=== PATIENT | female | born 1990 | race Caucasian/White ===

== ENCOUNTER 2022-07-28 16:58 | Outpatient (CLI) | payer BC, SELFPAY ==
[2022-07-28] VITALS (60 sets, daily range): BP systolic 124–153; BP diastolic 63–83; PULSE 66–138; O2SAT 83–99
--- NOTE | ~2022-07-28 | US_ITS ---
EXAMINATION: US OB BPP wo non-stress DATE: 07/29/2022 08:47 CDT INDICATION: Hypertension. TECHNIQUE: Real-time transabdominal obstetric ultrasound. FINDINGS: Comparison to ultrasound dated 07/19/2022 There is a single living fetus in vertex presentation. No evidence for placenta previa. cardiac activity and movement is noted with a heart rate of 139 beats per minute. Biophysical profile: breathin of 2 movement: 2 of 2 tone: 2 of 2 Amniotic flud pocket: 2 of 2 Total score: 8 of 8 IMPRESSION: 1. Single living intrauterine in vertex presentation. 2: Total biophysical profile score of 8/8. Reviewed, dictated and finalized at location L.
[2022-07-28 19:20] LABS: Basophils Percent Auto 0.3 % (0.2-1.2); Eosinophils Percent Auto 0.5 % (0-4.4); Hematocrit 34.7 % (37.0-47.0); Hemoglobin 11.5 g/dL (12.0-15.0); Immature Granulocyte Absolute 0.04 K/mm3 (0.00-0.031); Immature Granulocyte Percent A 0.5 % (0-0.5); Lymphocytes Absolute Auto 1.41 K/mm3 (0.9-3.2); Lymphocytes Percent Auto 19.1 % (18.3-44.2); Mean Corpuscular HGB Conc 33.1 g/dl (32-36); Mean Corpuscular Hemoglobin 30.3 pg (26-34); Mean Corpuscular Volume 91.3 fl (80-100); Mean Platelet Volume 11.2 fl (7.4-10.4); Monocytes Absolute Auto 0.3 K/mm3 (0.1-0.6); Monocytes Percent Auto 4.5 % (2.6-8.5); Neutrophils Absolute Auto 5.5 K/mm3 (1.3-6.7); Neutrophils Percent Auto 75.1 % (45.5-73.1); Platelet Count Result 200 k/mm3 (150-375); Red Cell Distribution Width 13.9 % (11.5-14.5); White Blood Count 7.4 K/mm3 (4.5-10.0)
[2022-07-28 19:31] LABS: Alanine Aminotransferase 32 U/L (6-35); Albumin Level 3.7 g/dL (3.5-5.1); Alkaline Phosphatase 170 U/L (38-126); Anion Gap 10 mmol/L (8-16); Aspartate Amino Transferase 26 U/L (14-36); Bilirubin,Total 0.4 mg/dL (0.2-1.3); Blood Urea Nitrogen 7 mg/dL (7-17); Calcium 8.6 mg/dL (8.4-10.2); Carbon Dioxide 20 mmol/L (22-30); Chloride 106 mmol/L (98-107); Estimated Glomerular Filt Rate > 60; Glucose 112 mg/dL (65-110); Potassium 3.7 mmol/L (3.4-5.0); Sodium 136 mmol/L (137-145); Uric Acid 3.6 mg/dL (2.5-7.5)
--- NOTE | 2022-07-28 20:00 | PC.NURSE ---
Pt wearing small blood pressure cuff. Per BP cuff instructions, white line not within the arrows. Also BP cuff instructions stat 27-36 cm. Pt arm measured and it is 38 cm. BP cuff change switched to larger size.
[2022-07-28 20:44] LABS: Creatinine Urine 117.8 mg/dL; Total Protein Urine Random 9 mg/dL; Ur Ttl Prot Creatinine Ratio 0.08 mg/mg (0-0.20)
--- NOTE | 2022-07-28 21:40 | PC.NURSE ---
Made Dr. Desai aware of pt labs currently and that UA is not back. contractions, FHR, BPs. Orders to d/c patient with follow up of NST Tuesday.
--- NOTE | 2022-07-28 21:50 | PC.NURSE ---
BP in OBIX. [employer]ite[employer] down and did not flow in.
== END 2022-07-28 21:50 ==
LOC: ANHOBOP 17:01 → ANHOBPP 17:01
PROVIDERS: Visit Provider Obstetrics & Gynecology
DX: O13.9 Gestational [pregnancy-induced] hypertension without significant proteinuria, unspecified trimester (principal); Z3A.00 Weeks of gestation of pregnancy not specified
CPT/HCPCS: 36415; 59025; 76819; 80053; 82570; 84156; 84550; 85025; 87086; 87088; 99199

== ENCOUNTER 2022-08-02 14:20 | Outpatient (CLI) | payer BC, SELFPAY ==
[2022-08-02 15:05] VITALS: BP 156/83; PULSE 91
[2022-08-02 15:16] VITALS: BP 134/78; PULSE 93
[2022-08-02 15:20] LABS: Basophils Percent Auto 0.3 % (0.2-1.2); Eosinophils Percent Auto 0.5 % (0-4.4); Hematocrit 37.2 % (37.0-47.0); Hemoglobin 12.2 g/dL (12.0-15.0); Immature Granulocyte Absolute 0.03 K/mm3 (0.00-0.031); Immature Granulocyte Percent A 0.4 % (0-0.5); Lymphocytes Absolute Auto 1.41 K/mm3 (0.9-3.2); Lymphocytes Percent Auto 18.9 % (18.3-44.2); Mean Corpuscular HGB Conc 32.8 g/dl (32-36); Mean Corpuscular Hemoglobin 30.3 pg (26-34); Mean Corpuscular Volume 92.5 fl (80-100); Mean Platelet Volume 10.9 fl (7.4-10.4); Monocytes Absolute Auto 0.3 K/mm3 (0.1-0.6); Neutrophils Absolute Auto 5.7 K/mm3 (1.3-6.7); Neutrophils Percent Auto 75.9 % (45.5-73.1); Platelet Count Result 212 k/mm3 (150-375); Red Blood Count 4.02 M/mm3 (4.2-5.4); Red Cell Distribution Width 14.1 % (11.5-14.5); White Blood Count 7.5 K/mm3 (4.5-10.0)
[2022-08-02 15:27] LABS: Appearance Urine Cloudy (Clear); Bacteria Urine 1+ /hpf; Bilirubin Urine Negative (Negative); Blood Urine Negative (Negative); Color Urine Yellow (Yellow); Glucose Urine UA Negative (Negative); Ketones Urine Negative (Negative); Leukocyte Esterase Ur 2+ LEU/UL (NEGATIVE); Nitrate Urine Negative (Negative); Non Pathogenic Casts 0-2; Protein Urine Negative (Negative); RBC Urine 0-2 /hpf (0-2); Specific Grav Ur 1.016 (1.001-1.035); Squamous Epithelial Cell Urine Many /hpf (Few); WBC Urine 21-50 /hpf (0-3)
[2022-08-02 15:31] VITALS: BP 134/70; PULSE 87
[2022-08-02 15:31] LABS: Add Urine Microscopic? YES
[2022-08-02 15:33] LABS: Alanine Aminotransferase 34 U/L (6-35); Alkaline Phosphatase 166 U/L (38-126); Anion Gap 6 mmol/L (8-16); Aspartate Amino Transferase 35 U/L (14-36); Bilirubin,Total 0.5 mg/dL (0.2-1.3); Blood Urea Nitrogen 8 mg/dL (7-17); Calcium 9.1 mg/dL (8.4-10.2); Carbon Dioxide 23 mmol/L (22-30); Chloride 107 mmol/L (98-107); Estimated Glomerular Filt Rate > 60; Glucose 108 mg/dL (65-110); Potassium 3.9 mmol/L (3.4-5.0); Sodium 136 mmol/L (137-145); Uric Acid 4.1 mg/dL (2.5-7.5)
[2022-08-02 15:38] LABS: Creatinine Urine 90.6 mg/dL; Total Protein Urine Random 14 mg/dL; Ur Ttl Prot Creatinine Ratio 0.15 mg/mg (0-0.20)
[2022-08-02 15:46] VITALS: BP 134/78; BP 138/79; PULSE 88; PULSE 95
== END 2022-08-02 16:03 | disposition home or self-care (01) ==
LOC: ANHOBOP 14:37 → ANHOBPP 14:38
PROVIDERS: Visit Provider Student in an Organized Health Care Education/Training Program
DX: O13.9 Gestational [pregnancy-induced] hypertension without significant proteinuria, unspecified trimester (principal); Z3A.00 Weeks of gestation of pregnancy not specified
CPT/HCPCS: 36415; 59025; 80053; 81001; 82570; 84156; 84550; 85025; 87086; 87088; 99199

== ENCOUNTER 2022-08-12 16:52 | Outpatient (RCR) | payer BC, SELFPAY ==
[2022-07-31 09:01] VITALS: BP 147/81; PULSE 79
[2022-08-05 18:04] VITALS: BP 140/79; PULSE 80
--- NOTE | 2022-08-05 18:22 | PC.NURSE ---
BPP 09/21. Patient discharged home.
--- NOTE | 2022-08-09 19:12 | PC.NURSE ---
Addendum entered by Colette Suarez RN 08/09/22 19:48: was also made aware of pt's BP's. Original Note: Called Dr. Desai about pt's NST. Orders for BPP amd HARMAN and to d/c patient after if all is okay.
--- NOTE | 2022-08-09 19:24 | PC.NURSE ---
Pt reports she can feel mild contractions very occasionaly, like one per hour some days. Pt not feeling the current contractions as much as she is having them.
--- NOTE | 2022-08-09 20:16 | PC.NURSE ---
Waiting for ultra sound report. Called production technologist, she reports BPP was 8/8 and HARMAN was 10.
--- NOTE | ~2022-08-12 | US_ITS ---
EXAMINATION: US OB BPP wo non-stress DATE: 08/12/2022 18:50 INDICATION: Gestational hypertension. TECHNIQUE: Real-time ultrasound of the pelvis was performed. COMPARISON: None. FINDINGS: There is a single living fetus in vertex presentation, longitudinal lie. The placenta is posterior. heart rate is 142 beats per minute (bpm). The amniotic fluid index is 8.2 cm, which is normal ( 5th to 95th percentile is 7.3 to 23.9 cm). Biophysical profile performed by the technologist: breathing (30 sec sustained breathing in 30 minutes): 2 out of 2 movement (3 gross body movements in 30 minutes: 2 out of 2 tone (one episode of sauxopk-mrcachjxa-jnwxpha limb movement): 2 out of 2 Amniotic fluid pocket (2 cm): 2 out of 2 Total score: 8 out of 8 IMPRESSION: 1. Single living fetus in vertex presentation. 2. Normal HARMAN of 8.2 cm. Reviewed, dictated and finalized at location K.
--- NOTE | ~2022-08-12 | US_ITS ---
EXAMINATION: US OB BPP wo non-stress DATE: 08/05/2022 18:11 INDICATION: Gestational hypertension TECHNIQUE: Real-time ultrasound of the pelvis was performed. COMPARISON: 07/28/2022. FINDINGS: There is a single living fetus in vertex presentation, longitudinal lie. Cervix not well seen, obscur ed by the head. The placenta is posterior. heart rate is 150 beats per minute (bpm). The amniotic fluid index is 6.9 cm, which is low (5th to 95th percentile is 7.5 to 24.4 cm). Biophysical profile performed by the technologist: breathing (30 sec sustained breathing in 30 minutes): 2 out of 2 movement (3 gross body movements in 30 minutes: 2 out of 2 tone (one episode of vuhpylb-osydsprle-nnbsbzh limb movement): 2 out of 2 Amniotic fluid pocket (2 cm): 2 out of 2 Total score: 8 out of 8 IMPRESSION: 1. Single living fetus in vertex presentation. 2. Oligohydramnios, HARMAN of 6.9. 3. Biophysical profile 8 out of 8. Reviewed, dictated and finalized at location K.
--- NOTE | ~2022-08-12 | US_ITS ---
EXAMINATION: US OB limited w BPP DATE: 08/09/2022 19:46 INDICATION: Evaluate heart rate, gestational hypertension. TECHNIQUE: Real-time ultrasound of the pelvis was performed. COMPARISON: None. FINDINGS: There is a single living fetus in vertex presentation, longitudinal lie. Cervix not well seen. The pl acenta is posterior. heart rate is 127 beats per minute (bpm). The amniotic fluid index is 10.7 cm, which is normal (5th to 95th percentile is 7.3 to 23.9 cm). Biophysical profile performed by the technologist: breathing (30 sec sustained breathing in 30 minutes): 2 out of 2 movement (3 gross body movements in 30 minutes: 2 out of 2 tone (one episode of gkhqrje-rtcsjxobq-jfkslwk limb movement): 2 out of 2 Amniotic fluid pocket (2 cm): 2 out of 2 Total score: 8 out of 8 IMPRESSION: 1. Single living fetus in vertex presentation. 2. Normal HARMAN of 10.7 cm. 3. Biophysical profile 8 out of 8. The liver, 08/05/2022 Reviewed, dictated and finalized at location K.
[2022-08-12 18:16] VITALS: BP 144/85; PULSE 69
== END 2022-09-27 12:50 | disposition home or self-care (01) ==
LOC: ANHOBOP 16:52
PROVIDERS: Visit Provider Student in an Organized Health Care Education/Training Program
DX: O16.3 Unspecified maternal hypertension, third trimester (principal); Z3A.37 37 weeks gestation of pregnancy
CPT/HCPCS: 59025; 76815; 76819

== ENCOUNTER 2022-08-14 08:03 | Outpatient (CLI) | payer BC, SELFPAY ==
[2022-08-14 08:30] LABS: Hematocrit 36.1 % (37.0-47.0); Mean Corpuscular HGB Conc 33.2 g/dl (32-36); Mean Corpuscular Hemoglobin 30.5 pg (26-34); Mean Corpuscular Volume 91.6 fl (80-100); Mean Platelet Volume 11.8 fl (7.4-10.4); Platelet Count Result 193 k/mm3 (150-375); Red Blood Count 3.94 M/mm3 (4.2-5.4); Red Cell Distribution Width 13.6 % (11.5-14.5); White Blood Count 6.6 K/mm3 (4.5-10.0)
[2022-08-15 10:17] LABS: Rapid Plasma Reagin Non-Reactive (NonReactive)
== END 2022-08-14 08:04 | disposition home or self-care (01) ==
LOC: ANHLAB 08:05
PROVIDERS: Visit Provider Student in an Organized Health Care Education/Training Program
DX: Z34.93 Encounter for supervision of normal pregnancy, unspecified, third trimester (principal); Z3A.00 Weeks of gestation of pregnancy not specified
CPT/HCPCS: 36415; 85027; 86592; 86850; 86900; 86901

== ENCOUNTER 2022-08-16 10:06 | Inpatient (IN) | payer BC, SELFPAY ==
[2022-08-16] VITALS (52 sets, daily range): BP systolic 113–170; BP diastolic 55–99; PULSE 56–277; RESP 14–18; TEMP 36–36.6; O2SAT 95–100; BMI 45.3
--- NOTE | 2022-08-16 10:06 | LDADM ---
This patient, Della Richards, was admitted to Labor/Delivery/Recovery 120 on 08/16/22 at 10:06. Plans for labor, pain management and were discussed with patient. Patient/family oriented to hospital policies and general routines including ID bracelet, bed and alarms, visiting hours, pain management, procedures, bathroom and other care routines, personal items, smoking policy, room service/diet and guest tray routines, infant security routines, and visiting hours. Patient/Family are encouraged to report perceived risks to care and to ask questions if they do not understand what they are told or what they should do. See OBIX for further documentation.
--- NOTE | 2022-08-16 10:06 | PM.IMHP ---
H&P: HPI History of Present Illness Date/Time: 08/16/22 10:06 Chief Complaint: Intrauterine at term prior section Gestational hypertension Desires permanent sterilization Narrative: 32-year-old who presents at 39 weeks for repeat And tubal ligation. Patient's is complicated by gestational hypertension and history of prior . Patient elects for permanent sterilization. Review of Systems Cardiovascular: Cardiovascular: Denies chest pain, Denies leg edema, Denies palpitations, Denies dyspnea and Denies dyspnea on exertion Respiratory: Respiratory: Denies cough, Denies dyspnea and Denies dyspnea on exertion Gastrointestinal: Gastrointestinal: Denies abdominal pain, Denies constipation, Denies diarrhea, Denies nausea and Denies vomiting Genitourinary: Genitourinary: Denies hematuria, Denies urinary frequency, Denies dysuria, Denies pelvic pain, Denies urinary incontinence and Denies vaginal discharge Neurologic: Reports system reviewed and no additional complaints, except as documented Psychiatric: Psychiatric: Reports no additional psychiatric complaints Endocrine: Endocrine: Denies palpitations PMFSH Past Medical History Medical History Suppression of menstruation Surgical History Surgical History Delivery by section (01/07/19) Family History Family History Grandparent CHF (congestive heart failure) paternal grandfather Hypertension paternal grandparents Other Breast cancer paternal aunt Carcinoma of colon paternal Aunt Different sisiter Father Hypertension Social History Social History Smoking status: Never smoker Alcohol intake: current Drinks per week: 1 Alcohol use details: social Substance use: current Substance use type: does not use Living arrangements: other Additional living arrangements comments: Occupation/Education: occupation 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 [employer] Gender identity (if verbalized by the patient): Female Sexual Orientation (if Verbalized by the Patient): Straight or Heterosexual Spiritual care concerns: No Meds Home Medications and Allergies Home Medications Medication Instructions Recorded Confirmed Type aspirin 81 mg tablet,delayed 81 mg PO DAILY 03/29/22 07/31/22 History release (Adult Low Dose Aspirin) omeprazole 20 mg capsule,delayed 20 mg PO DAILY #30 caps 06/07/22 07/31/22 Rx release ferrous sulfate 325 mg (65 mg 325 mg PO DAILY 06/21/22 07/31/22 History iron) tablet (FeroSul) vit no.95-ferrous 1 tablet PO DAILY 07/31/22 07/31/22 History fumarate 28 mg-folic acid 800 mcg tablet () Allergies Allergy/AdvReac Type Severity Reaction Status Date / Time No Known Allergies Allergy Verified 08/09/22 17:02 Exam Const: General: no acute distress Eyes: EOM: EOMs intact bilaterally Neck: Neck: supple Thyroid: thyroid normal Chest: Breast/axilla inspection: normal inspection of the breasts Breast/axilla palpation: normal palpation of the breasts, normal palpation of the axillae and no axillary lymphadenopathy Resp: Effort & Inspection: normal respiratory effort Auscultation: clear to auscultation bilaterally Cardio: Rate: regular rate Rhythm: regular rhythm GI: Inspection: non-distended and other (Gravid) GI Palp: Yes Soft to palpation, No Tenderness to palpation present (GI) and No Guarding due to palpation present (GI) Auscultation: normal bowel sounds : Speculum Exam - Vagina: No vaginal bleeding OB/external & speculum: external exam normal; No vaginal bleeding Skin: General skin exam: normal color and no rashes or lesi
[2022-08-16] MEDS: LACTATED RINGERS 1,000 ML 125 ML IV CONT ×2 (10:39→11:36)
[2022-08-16 10:57] LABS: Alanine Aminotransferase 35 U/L (6-35); Albumin Level 3.8 g/dL (3.5-5.1); Alkaline Phosphatase 206 U/L (38-126); Anion Gap 10 mmol/L (8-16); Aspartate Amino Transferase 28 U/L (14-36); Bilirubin,Total 0.5 mg/dL (0.2-1.3); Blood Urea Nitrogen 9 mg/dL (7-17); Calcium 9.4 mg/dL (8.4-10.2); Carbon Dioxide 19 mmol/L (22-30); Chloride 107 mmol/L (98-107); Estimated CRCL calculation 154 ml/min; Estimated Glomerular Filt Rate > 60; Glucose 91 mg/dL (65-110); Potassium 3.9 mmol/L (3.4-5.0); Sodium 136 mmol/L (137-145)
--- NOTE | 2022-08-16 10:58 | WPDANESEPPF ---
Anes - Initial Pre Proc Eval Procedure: Operation Date: 08/16/22 12:00 Proposed Procedures p Repeat Section with Tubal Ligation - Winston Francis MD Date/Time: 08/16/22 10:58 Surgeon: Winston Francis MD Pre Op Diagnosis: Repeat C/S Patient Data Age: 32 Gender: F Height: 1.55 m Weight: 109 kg Last Vital Signs Pulse 82 08/16/22 10:46 BP 119/61 08/16/22 10:46 Allergies Allergy/AdvReac Type Severity Reaction Status Date / Time No Known Allergies Allergy Verified 08/09/22 17:02 Home Medications Medication Instructions Recorded Confirmed Type aspirin 81 mg tablet,delayed 81 mg PO DAILY 03/29/22 07/31/22 History release (Adult Low Dose Aspirin) omeprazole 20 mg capsule,delayed 20 mg PO DAILY #30 caps 06/07/22 07/31/22 Rx release ferrous sulfate 325 mg (65 mg 325 mg PO DAILY 06/21/22 07/31/22 History iron) tablet (FeroSul) vit no.95-ferrous 1 tablet PO DAILY 07/31/22 08/16/22 History fumarate 28 mg-folic acid 800 mcg tablet () ibuprofen 600 mg tablet 600 mg PO Q6H PRN pain #30 tabs 08/18/22 Rx oxycodone-acetaminophen 5 mg-325 1 tablet PO Q6H PRN pain #28 tabs 08/18/22 Rx mg tablet labetalol 200 mg tablet 200 mg PO BID #60 tabs 08/24/22 08/24/22 Rx cephalexin 500 mg capsule 500 mg PO Q12H 5 days #10 caps 09/03/22 Rx Laboratory Tests 08/16/22 10:30 Sodium 136 L mmol/L (137-145) Potassium 3.9 mmol/L (3.4-5.0) Chloride 107 mmol/L (98-107) Carbon Dioxide 19 L mmol/L (22-30) Anion Gap 10 mmol/L (8-16) BUN 9 mg/dL (7-17) Creatinine 0.50 L mg/dL (0.7-1.0) Estim Creat Clear Calc 154 ml/min Estimated GFR > 60 (59 - ) Glucose 91 mg/dL (65-110) Calcium 9.4 mg/dL (8.4-10.2) Total Bilirubin 0.5 mg/dL (0.2-1.3) AST 28 U/L (14-36) ALT 35 U/L (6-35) Alkaline Phosphatase 206 H U/L (38-126) Total Protein 7.0 g/dL (6.3-8.2) Albumin 3.8 g/dL (3.5-5.1) Patient hx anesthesia problems: none Family hx anesthesia problems: none Results Review: All pre-operative results and documents have been reviewed as part of the pre-operative evaluation. [facility] Past Medical History Medical History Suppression of menstruation Surgical History Surgical History Delivery by section (01/07/19) Family History Family History Grandparent CHF (congestive heart failure) paternal grandfather Hypertension paternal grandparents Other Breast cancer paternal aunt Carcinoma of colon paternal Aunt Different sisiter Father Hypertension Social History Social History Smoking status: Never smoker Second hand tobacco smoke exposure: No Alcohol intake: current Drinks per week: 1 Alcohol use details: social Substance use: current Substance use type: does not use Lack of Transportation: No Lack of Food: Never True Current Housing: I Have Housing Concerned About Future Housing: No Difficulty Paying Gas/Electric Bills: No Difficulty Paying for Meds: No Currently Unemployed: No Education: Master's Degree or Higher Difficulty w/ Childcare or Family Care: No Living arrangements: other Additional living arrangements comments: Occupation/Education: occupation 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
[2022-08-16 11:21] LABS: Uric Acid 4.9 mg/dL (2.5-7.5)
[2022-08-16] MEDS: ceFAZolin 2 GM/D5W 50 ML 2 GM/50 ML BAG IVPB (11:46)
--- NOTE | 2022-08-16 13:17 | W.PM.PROC2 ---
Procedure Note - Detailed Date of Procedure 08/16/22 Pre-op Diagnosis Repeat C/S desires permanent sterilization Post-op Diagnosis Same Procedure Performed repeat low transverse section bilateral salpingectomy Surgeon Winston Francis MD Anesthesia Spinal and Epidural Description of Procedure The patient was taken to the operating room. A combined spinal epidural anesthesic was administered and found to be adequate at a t-10 level. The patient was placed in a supine position with a slight left lateral tilt. A santos catheter was placed with return of clear urine. A Bovie grounding pad was placed. Surgical prep was performed and surgical drapes were placed. A surgical time out was performed. A Pfannenstiel skin incision was then made with the scalpel and carried through to the underlying layer of fascia. The fascia was then incised in the midline and the incision was extended laterally with the Overton scissors. The superior aspect of the fascia was then grasped with the Brandy clamps, elevated, and the underlying rectus muscles dissected off bluntly and sharply. Attention was then turned to the inferior aspect of this incision which, in a similar fashion, was grasped, tented up with the Brandy clamps, and the rectus muscles dissected off both bluntly and sharply. The rectus muscles were then in the midline. The peritoneum was identified and entered bluntly. The peritoneal incision was then extended superiorly and inferiorly with good visualization of the bladder. The vesico-uterine serosa was identified and dissected to create a bladder flap. The bladder blade was reinserted. The uterus was inspected for rotation. A low-transverse uterine incision was made sharply with the scalpel and entry was made into the uterine cavity. An amniotomy was made and copious amounts of clear fluid were noted on return. The uterine incision was extended laterally bluntly. The bladder blade was removed and the fetus was delivered atraumatically. The nose and mouth were suctioned with a bulb syringe. The umbilical cord was clamped twice and cut. The was handed off to the waiting staff. At the time of the delivery, the had good color, tone and grimace. The infant cried with minimal stimulation. A second segment of umbilical cord was clamped and cut for cord blood gasses. Cord blood was collected for determination of the blood type and for direct Batista. The placenta was delivered spontaneously without difficulty. The placenta appeared grossly normal and complete. The uterus was exteriorized and cleared of all clots and debris. The uterine incision was repaired using 0-monocryl suture in a running fashion. A second layer of 0 Monocryl suture was used in an imbricating fashion to obtain excellent hemostasis and uterine strength. The uterine closure was inspected for hemostasis. The posterior aspect of the uterus and the broad ligaments were inspected and the posterior cul-de-sac cleared of fluid and blood clots. Attention was then turned to the fallopian tubes for the salpingectomy. The left fallopian tube was followed out to the fimbrae and grasped with a Joe. The fallopian tube was transected along the inferior mesosalpinx. Transection was completed from the fimbrae to the uterine corpus. Similar procedure was performed on the right side. The uterine closure was again inspected and found to be hemostatic. The uterus was returned to the abdominal cavity. The pericolic gutters were inspected and were cleared of all blood clots and debris. The uterine closure was then re inspected to ensure hemostasis as were all subfascial tissues. The peritoneum was closed using 3-0 vicryl in a running fashion. The fascia was reapproximated with 0-vicryl in a running fashion. The subcutaneous tissue was irrigated and hemostasis achieved with electrocautery. It was reapproximated with 3-0 vicryl in a running fashion. The skin was closed with 4-0 vicryl in a sub
[2022-08-16] MEDS: OXYTOCIN 30 UNITS/NS 500 ML 30 UNITS/500 ML BAG 125 UNITS IV CONT (14:05)
[2022-08-16] MEDS: MORPHINE SULFATE INJ (*CRX) 10 MG/ML AMP 2 MG IV PUSH (15:16)
[2022-08-16] MEDS: DEXTROSE 5%/0.45% SOD CHL 1,000 ML 125 ML IV CONT (18:25)
[2022-08-16] MEDS: KETOROLAC 30 MG/ML VIAL (*BKC) IV PUSH (18:25)
[2022-08-16] MEDS: HYDROcodone/acetaminophen (*CRX) 5-325 MG TABLET 1 TAB PO (22:40)
[2022-08-17] MEDS: KCL 20 MEQ/D5/0.45% SOD CHL 1,000 ML 125 ML IV CONT (01:20)
[2022-08-17 05:05] VITALS: BP 148/83; PULSE 75; RESP 18; TEMP 36
[2022-08-17] MEDS: IBUPROFEN 600 MG TABLET PO ×3 (05:06→20:46)
[2022-08-17] MEDS: HYDROcodone/acetaminophen (*CRX) 5-325 MG TABLET 1 TAB PO ×4 (05:07→20:52)
[2022-08-17 05:19] LABS: Basophils Percent Auto 0.1 % (0.2-1.2); Eosinophils Absolute Auto 0.1 K/mm3 (0-0.3); Eosinophils Percent Auto 0.6 % (0-4.4); Hematocrit 33.1 % (37.0-47.0); Hemoglobin 10.5 g/dL (12.0-15.0); Immature Granulocyte Absolute 0.03 K/mm3 (0.00-0.031); Immature Granulocyte Percent A 0.4 % (0-0.5); Lymphocytes Absolute Auto 1.19 K/mm3 (0.9-3.2); Mean Corpuscular HGB Conc 31.7 g/dl (32-36); Mean Corpuscular Volume 94.6 fl (80-100); Mean Platelet Volume 12.2 fl (7.4-10.4); Monocytes Absolute Auto 0.4 K/mm3 (0.1-0.6); Monocytes Percent Auto 4.9 % (2.6-8.5); Neutrophils Absolute Auto 6.8 K/mm3 (1.3-6.7); Platelet Count Result 165 k/mm3 (150-375); Red Cell Distribution Width 13.7 % (11.5-14.5); White Blood Count 8.5 K/mm3 (4.5-10.0)
[2022-08-17 07:40] VITALS: BP 127/70; PULSE 71; RESP 18; TEMP 36.9; O2SAT 97
--- NOTE | 2022-08-17 08:18 | P.PNOB_ITS ---
OB - PN: Subj Subjective Date/time seen: 08/17/22 08:18 Patient comments: no complaints, pain well controlled, tolerating diet and flatus present OB - PN: Obj Data Labs 08/17/22 05:05 08/16/22 10:30 Labs: Laboratory Results - last 24 hr 08/16/22 08/17/22 10:30 05:05 WBC 8.5 RBC 3.50 L Hgb 10.5 L Hct 33.1 L MCV 94.6 MCH 30.0 MCHC 31.7 L RDW 13.7 Plt Count 165 MPV 12.2 H Immature Gran % (Auto) 0.4 Neut % (Auto) 80.0 H Lymph % (Auto) 14.0 L [place] % (Auto) 4.9 Eos % (Auto) 0.6 Baso % (Auto) 0.1 L Lymph # (Auto) 1.19 [place] # (Auto) 0.4 Eos # (Auto) 0.1 Baso # (Auto) 0.0 Abs Immat Gran (auto) 0.03 Absolute Neuts (auto) 6.8 H Absolute Nucleated RBC 0.0 Nucleated RBC % 0.0 Sodium 136 L Potassium 3.9 Chloride 107 Carbon Dioxide 19 L Anion Gap 10 BUN 9 Creatinine 0.50 L Estim Creat Clear Calc 154 Estimated GFR > 60 Glucose 91 Uric Acid 4.9 Calcium 9.4 Total Bilirubin 0.5 AST 28 ALT 35 Alkaline Phosphatase 206 H Total Protein 7.0 Albumin 3.8 OB - PN A/P Plan day: 1 Plan: routine care Comments: patient doing well H/H stable afebrile, VSS incision covered with ZAIRA dressing. mildly saturated santos removed, voiding spontaneously pt desires circumcision. risks, benefits, alternatives discuss. maternal consent obtained continue routine post op care Time Spent With Patient Time: Total time spent is greater than 50% in coordination of care (as documented) at patient's floor/unit and/or counseling patient: Time with patient: less than 15 minutes Review of Systems Constitutional: Constitutional: Reports no additional constitutional complaints Cardiovascular: Cardiovascular: Reports no additional cardiovascular complaints Respiratory: Respiratory: Reports no additional respiratory complaints Gastrointestinal: Gastrointestinal: Reports no additional gastrointestinal complaints Genitourinary: Genitourinary: Reports no additional female genitourinary complaints Exam Const: General: comfortable and no acute distress Resp: Effort & Inspection: normal respiratory effort Auscultation: clear to auscultation bilaterally Cardio: Rate: regular rate GI: GI Palp: Yes Soft to palpation, Yes Tenderness to palpation present (GI) (around incision ) and No Guarding due to palpation present (GI) Auscultation: normal bowel sounds Other: incision C/D/I, covered with Dermabond Psych: Appearance: grossly normal Mental Status: mental status grossly normal Affect: normal affect
[2022-08-17] MEDS: DOCUSATE SODIUM 100 MG CAPSULE PO ×2 (10:00→17:02)
[2022-08-17] MEDS: MULTIVIT/MIN/PREN/FOL AC/IRON TABLET 1 TAB PO (10:00)
[2022-08-17 12:00] VITALS: BP 135/72; PULSE 68; RESP 14; TEMP 36.9; O2SAT 95
[2022-08-17] MEDS: HYDROcodone/acetaminophen (*CRX) 10-325 MG TABLET 1 TAB PO (12:08)
--- NOTE | 2022-08-17 13:35 | WPDANLDPN2 ---
Anes-Prog Note L&D Date/Time: 08/17/22 13:35 Comfortable throughout: section Neuraxial method: spinal Epidural/Spinal procedure site: clean & non-tender Neuro status: Neuro function grossly intact. Cardiovascular status: normal Respiratory status: normal Airway patency: baseline Mental status: baseline Post-Op hydration status: normal Vital Signs: Last Vital Signs Temp 98.4 F 08/17/22 07:40 Pulse 71 08/17/22 07:40 Resp 18 08/17/22 07:40 BP 127/70 08/17/22 07:40 Pulse Ox 97 08/17/22 07:40 O2 Del Method Room Air 08/16/22 15:30 Pain score (VAS): 0 I/O: Intake & Output 08/16/22 08/17/22 08/17/22 23:59 07:59 15:59 Intake Total 740 1860 500 Output Total 200 700 Balance 540 1160 500 Post-procedural complaints: none Patient feedback: Patient satisfied with anesthetic care.
--- NOTE | 2022-08-17 13:36 | WPDANLDNPN2 ---
Anes-Prog Note L&D-Neuraxial Date/Time: 08/17/22 13:36 Neuraxial medications: intrathecal PF morphine Opiod-related complaints: none Patient feedback: Patient satisfied with post-operative pain management.
[2022-08-17] MEDS: SIMETHICONE 80 MG TAB.CHEW PO ×2 (14:30→17:16)
[2022-08-17 20:45] VITALS: BP 152/76; PULSE 86; RESP 20; TEMP 36.2
[2022-08-17 23:00] VITALS: BP 148/83; PULSE 80
[2022-08-18] MEDS: HYDROcodone/acetaminophen (*CRX) 5-325 MG TABLET 1 TAB PO ×4 (00:16→11:45)
[2022-08-18 04:00] VITALS: BP 141/83; PULSE 74
[2022-08-18] MEDS: IBUPROFEN 600 MG TABLET PO ×2 (04:08→11:45)
[2022-08-18 07:30] VITALS: BP 146/86; PULSE 79; RESP 16; TEMP 36.6; O2SAT 99
[2022-08-18] MEDS: DOCUSATE SODIUM 100 MG CAPSULE PO (08:36)
--- NOTE | 2022-08-18 08:58 | P.DS_ITS ---
DS: Admitting Diagnosis Discharge Date 08/18/22 Admitting Diagnosis intrauterine at term Prior section Gestational hypertension DS: Discharge Diagnosis Discharge Diagnosis (1) : Code(s): Z34.90 - Encounter for supervision of normal , unspecified, unspecified trimester Status: Acute (2) Encounter for sterilization: Code(s): Z30.2 - Encounter for sterilization Status: Acute (3) Gestational hypertension: Code(s): O13.9 - Gestational [-induced] hypertension without significant proteinuria, unspecified trimester Status: Acute (4) History of section complicating : Code(s): O34.219 - Maternal care for unspecified type scar from previous delivery Status: Acute OB - DS: Summary OB Procedures : None OB Procedures Intrapartum: OB Procedures: : None Peripartum Data Infant Delivery Method: Section Procedures: Procedures Operation Date: 08/16/22 12:00 Actual Procedure Side Surgeon p Section Winston Francis MD complications: none Status at Discharge Functional status at discharge: independent ambulation Overall status at discharge: patient is progressing back to baseline Time Spent with Patient Time attestation: Total time spent providing and/or coordinating discharge services: Time spent: Less than 30 minutes Exam Const: General: comfortable and no acute distress Resp: Effort & Inspection: normal respiratory effort Auscultation: clear to auscultation bilaterally Cardio: Rate: regular rate GI: Inspection: non-distended GI Palp: Yes Soft to palpation, No Firmness to palpation present (GI), Yes Tenderness to palpation present (GI) (mild tenderness over incision ) and No Guarding due to palpation present (GI) Auscultation: normal bowel sounds Psych: Appearance: grossly normal Mental Status: mental status grossly normal DS: Data Data Completed and Pending Pending studies at discharge: Pending at discharge 08/16/22 13:52 Surgical [PTH] Routine Discharge Plan Discharge Discharging Clinician: Winston Francis Patient Disposition: Home, Self-Care Activity: as tolerated and pelvic rest Diet: regular Patient Instructions: Antibiotic Form, (DC) Stand Alone Forms: General Discharge Information Follow-up/Referrals: Winston Francis MD [Physician] - 1 Week ( blood pressure check, dressing remov al) Discharge Medications: New oxycodone-acetaminophen 5-325 mg tablet 1 tablet PO Q6H PRN (Reason: pain) Qty: 28 0RF ibuprofen 600 mg tablet 600 mg PO Q6H PRN (Reason: pain) Qty: 30 0RF Continued omeprazole 20 mg capsule,delayed release(DR/EC) 20 mg PO DAILY Qty: 30 1RF ferrous sulfate [FeroSul] 325 mg (65 mg iron) tablet 325 mg PO DAILY aspirin [Adult Low Dose Aspirin] 81 mg tablet,delayed release (DR/EC) 81 mg PO DAILY PNV cmb#95-ferrous fumarate-FA [] 28 mg iron- 800 mcg Tablet 1 tablet PO DAILY Date of admission: 08/16/22 10:06 Primary Care Provider: PHYSICIAN,AUTOMOTIVE SPECIALTY TECHNICIAN Admitting Provider: Winston Francis Attending physician on admission: Winston Francis Condition: Stable
--- NOTE | 2022-08-18 10:14 | PC.NURSE ---
Patient viewed the discharge video Mother & Baby Care, The First Two Weeks . Patient was given the opportunity and encouraged to ask questions. Patient verbalized understanding of information shared and has been given the mother/baby guide for home reference.
[2022-08-20 10:36] VITALS: BP 154/83; PULSE 70; RESP 18; TEMP 37; O2SAT 100
== END 2022-08-18 13:28 | disposition home or self-care (01) | DRG 785 ==
LOC: ANHLDR 10:27 → ANHOB2 15:50
PROVIDERS: Admitting Provider Student in an Organized Health Care Education/Training Program; Visit Provider Student in an Organized Health Care Education/Training Program
PROC: 10D00Z1 Extraction of Products of Conception, Low, Open Approach (ICD-10-PCS; CPT 59514; principal; 2022-08-16 12:00)
DX: O34.219 Maternal care for unspecified type scar from previous cesarean delivery (principal); Z30.2 Encounter for sterilization; O13.4 Gestational [pregnancy-induced] hypertension without significant proteinuria, complicating childbirth; Z3A.39 39 weeks gestation of pregnancy; Z37.0 Single live birth
CPT/HCPCS: 36415; 80053; 84550; 85025; 88302; A9270; J0690; J1885; J2270; J2274; J2405; J2590; J3480; J7120

== ENCOUNTER 2024-12-14 18:17 | Emergency (ER) | payer OTHER, SELFPAY ==
--- NOTE | ~2024-12-14 | CT_ITS ---
CT abdomen pelvis wo con INDICATION:right flank pain, kidney stone . COMPARISON: None. TECHNIQUE: Axial 2.5 mm images of the abdomen were obtained without IV or oral contrast. Diagnostic sensitivity is limited due to lack of IV contrast. FINDINGS: The lung bases are clear. The liver parenchyma is unremarkable. No intrahepatic mass or ductal dilatation is evident. The gallbladder is unremarkable. The pancreas and spleen are normal in appearance. The adrenal glands are symmetric in size. The kidneys are unremarkable. No intrarenal stones are noted. Mild right hydronephrosis secondary to a 4 mm stone in the distal right ureter. Evaluation of the stomach and bowel loops are limited due to lack of oral contrast. The appendix is normal in appearance. There are no bowel obstruction. The bladder and rectum are normal. The uterus and both adnexa are unremarkable. No free intraperitoneal fluid or air is evident. There is no significant retroperitoneal lymphadenopathy. The aorta, visceral vessels and renal arteries demonstrate normal caliber. The lower thoracic and lumbar vertebrae are in normal alignment. IMPRESSION: Mild right hydronephrosis secondary to a 4 mm stone in the distal right ureter just proximal to the ureterovesicular junction. All CT scans at this facility are performed using low dose modulation techniques as appropriate to perform exam including the following: automated exposure control; use of iterative reconstruction technique; adjustment of the mA and/or kV according to patient size (this includes techniques or standardized protocols for targeted exams where dose is matched to indication/reason for exam). Reviewed, dictated and finalized at location S. IMPRESSION: Mild right hydronephrosis secondary to a 4 mm stone in the distal right ureter just proximal to the ureterovesicular junction. All CT scans at this facility are performed using low dose modulation techniqu es as appropriate to perform exam including the following: automated exposure c ontrol; use of iterative reconstruction technique; adjustment of the mA and/or kV according to patient size (this includes techniques or standardized protocol s for targeted exams where dose is matched to indication/reason for exam).
[2024-12-14 18:19] VITALS: BP 146/101; PULSE 90; RESP 16; TEMP 36.6; O2SAT 100
--- OUTSIDE RECORDS SUMMARY | 2024-12-14 18:19 | XMS_ITS | Encounter Summary ---
Author Organization [facility] Address [address] [place] [id number] Care Team Providers Care Assurance Sourcing Manager Name Role Phone Farida Fernandez MD Primary Care Provider + Encounter Details Date Type Department Care Team (Late st Contact Info) Description 08/16/2024 Epiphyte Message Enc [facility] Medicine [address] [address] Eric, [facility] Provider pap Social History Tobacco Use Types Packs/Day Years Used Date Smoking Tobacco: Never Smokeless Tobacco: Never Alcohol Use Standard Drinks/Week Comments Yes 0 (1 standard drink = 0.6 oz pur e alcohol) Social drinker PHQ-2 Answer Date Recorded Patient Health Questionnaire-2 Score 0 08/16/2024 Comments No Sex and Gender Information Value Date Recorded Sex Assigned at Not on file Legal Sex Female 11:27 AM CDT Gender Identity Not on file Sexual Orientation Not on file 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 Question Answer Date of Assessment Author Status Little interest or pleasure in doing things Not at all 08/16/2024 10:08 AM ROGERT Nya May MA Ac tive Feeling down, depressed, or hopeless Not at all 08/16/2024 10:08 AM ROGERT Nya May MA Active Patient Health Questionnaire-2 Score 0 08/16/2024 10:08 AM CDT Nya May MA Active documented as of this encounter Plan of Treatment Upcoming Encounters Date Type Department Care Team (Late st Contact Info) Description 01/15/2025 7:30 AM ORDER CONTROL CLERK BLOOD BANK Office Visit [address] [place], [place] [id number] Farida Fernandez MD [address] [place], [place] [id number] 08/22/2025 7:30 AM CDT Office Visit [address] [place], [place] [phone] Farida Fernandez MD [address] [place], [place] [id number] documented as of this encounter Visit Diagnoses Not on filedocumented in this encounter Care Teams Assurance Sourcing Manager Relationship Specialty Start Date End Date Farida Fernandez MD [address] [place] [address] PCP - General FAMILY PRACTICE 08/16/24 documented as of this encounter
--- OUTSIDE RECORDS SUMMARY | 2024-12-14 18:19 | XMS_ITS | Clinical Summary ---
Author Organization [facility] Address [address] [place] [address] Care Team Providers Care Supervisor [employer] Name Role Phone Unavailable Primary Care Provider Unavailabl e Source Comments [facility],non-owned Affiliates and Associated Physician Practices is amultiple site organization consisting of ambulatory clinics and hospital sitesin [place], [place], [place] and [place]. This disclosure is being madepursuant to the Care Everywhere program and may not contain all information available regarding this patient. Last updated 17.[facility] Allergies No known active allergies Medications * Be aware that medications may not be up to date on this document. Alwaysverify current medications with the patient. No known medications Social History Tobacco Use Types Packs/Day Years Used Date Smoking Tobacco: Never Smokeless Tobacco: Never Comments No Sex and Gender Information Value Date Recorded Sex Assigned at Not on file Legal Sex Female 9:01 AM CARROT GRADER INSPECTOR Gender Identity Not on file Sexual Orientation Not on file Last Filed Vital Signs Vital Sign Reading Time Taken Comments Blood Pressure 120/78 02/10/2017 6:27 PM CARROT GRADER INSPECTOR Pulse 69 02/10/2017 6:27 PM CARROT GRADER INSPECTOR Temperature 37 C (98.6 F) 02/10/2017 6:27 PM CARROT GRADER INSPECTOR Respiratory Rate 18 02/10/2017 6:27 PM CARROT GRADER INSPECTOR Oxygen Saturation 97% 02/10/2017 6:27 PM CARROT GRADER INSPECTOR Inhaled Oxygen Concentration - - Weight 86.2 kg (190 lb) 02/10/2017 6:27 PM CARROT GRADER INSPECTOR Height - - Body Mass Index - - Plan of Treatment Health Maintenance Due Date Last Done Comments HIV SCREENING 2005 HEPATITIS C SCREENING 02/25/2008 DTAP/TDAP/TD VACCINES (1 - Tdap) 2009 HEPATITIS B VACCINE (1 of 3 - 19+ 3-dose series) 2009 PAP SMEAR 2011 HPV VACCINE (1 - 3-dose SCDM series) 2017 DEPRESSION SCREENING 02/15/2024 COVID-19 VACCINE (1 - 2023-2 5 season) 2024 INFLUENZA VACCINE (#1) 2024 ZOSTER VACCINE (1 of 2) 2040 HIB VACCINE Aged Out No longer eligi ble based on patient's age to complete this topic MENINGOCOCCAL (Group B) VACC INE SHARED DECISION-MAKING Aged Out No longer eligibl e based on patient's age to complete this topic MENINGOCOCCAL GROUPS A/C/Y/W VACCINE Aged Out No longer eligible b ased on patient's age to complete this topic PNEUMOCOCCAL VACCINE Aged Out No long er eligible based on patient's age to complete this topic Insurance [facility]/ON LICENSE OF [facility]
--- OUTSIDE RECORDS SUMMARY | 2024-12-14 18:19 | XMS_ITS | Clinical Summary ---
Author Organization [facility] Address [address] [place] [address] Phone Care Team Providers Care Absorption Plant Operator Helper Name Role Phone Rosa Redding MD Primary Care Provider [phone] Allergies No known active allergies Medications No known medications Active Problems Problem Noted Date Diagnosed Date , supervision, high-risk 09/25/2018 Immunizations Immunization Administration Dates Next Due INFLUENZA VACCINE QUADRIVALENT 6 MOS UP PF IM Family History Medical History Relation Name Comments Hypertension Father Healthy Mother Hypertension Paternal Grandmother Relation Name Status Comments Father Alive Mother Alive Paternal Grandmother Social History Tobacco Use Types Packs/Day Years Used Date Smoking Tobacco: Never Smokeless Tobacco: Never Alcohol Use Standard Drinks/Week Comments Yes 4 (1 standard drink = 0.6 oz pur e alcohol) Socially Comments Unknown Sex and Gender Information Value Date Recorded Sex Assigned at Not on file Legal Sex Female 1:42 PM CDT Gender Identity Not on file Sexual Orientation Not on file Last Filed Vital Signs Vital Sign Reading Time Taken Comments Blood Pressure 120/82 03/19/2019 9:03 AM ESTHETICIAN Pulse 61 03/19/2019 9:03 AM ESTHETICIAN Temperature 36.7 C (98 F) 03/19/2019 9:03 AM ESTHETICIAN Respiratory Rate 16 03/19/2019 9:03 AM ESTHETICIAN Oxygen Saturation 97% 03/19/2019 9:03 AM ESTHETICIAN Inhaled Oxygen Concentration - - Weight 97.1 kg (214 lb) 03/19/2019 9:03 AM ESTHETICIAN Height 154.9 cm (5' 1) 03/19/2019 9:03 AM ESTHETICIAN Body Mass Index 40.43 03/19/2019 9:03 AM ESTHETICIAN Plan of Treatment Health Maintenance Due Date Last Done Comments DTAP/TDAP/TD VACCINES (1 - Tdap) 2009 HEPATITIS B VACCINES (1 of 3 - 19+ 3-dose series) 02/14 HPV/Cotest (21-29) 2011 HPV VACCINES (1 - 3-dose SCDM series) 2017 CERVICAL CANCER SCREENING 2020 HPV/Cotest (30-65) 2020 PAP SMEAR 2020 INFLUENZA VACCINE (#1) 2024 11/12/2019 Insurance OPTIONS PPO [id number] [facility] OPTIONS PPO [id number] Care Teams Absorption Plant Operator Helper Relationship Specialty Start Date End Date Rosa Redding MD [address] [place] [phone] PCP - General Obstetrics and Gynecology 09/25/18
[2024-12-14 18:34] LABS: Hematocrit 38.3 % (37.0-47.0); Hemoglobin 12.3 g/dL (12.0-15.0); Immature Granulocyte Percent A 0.4 % (0-0.5); Lymphocytes Absolute Auto 1.87 K/mm3 (0.9-3.2); Mean Corpuscular HGB Conc 32.1 g/dl (32-36); Mean Corpuscular Hemoglobin 28.3 pg (26-34); Mean Corpuscular Volume 88.2 fl (80-100); Nucleated Red Blood Cells Absolute Auto 0.000 K/mm3 (0.0-0.012); Nucleated Red Blood Cells Perc 0.0 % (0.0-0.2); Platelet Count Result 298 k/mm3 (150-375); Red Blood Count 4.34 M/mm3 (4.2-5.4); White Blood Count 10.9 K/mm3 (4.5-10.0)
[2024-12-14 18:51] LABS: BEDSIDEPREGUCG Negative (Negative)
[2024-12-14 19:29] LABS: Add Urine Microscopic? YES; Appearance Urine Cloudy (Clear); Glucose Urine UA Negative (Negative); Leukocyte Esterase Ur Negative LEU/UL (Negative); Nitrate Urine Negative (Negative); Non Pathogenic Casts 0-2; Specific Grav Ur 1.034 (1.001-1.035)
[2024-12-14 19:34] VITALS: BP 151/79; PULSE 78; RESP 18; TEMP 36.8; O2SAT 100
--- NOTE | 2024-12-14 19:39 | ED_ITS ---
HPI - Abdominal Pain General Chief Complaint: Abdominal Pain Stated Complaint: lower back and abdominal pain Time Seen by Provider: 12/14/24 19:34 History of Present Illness HPI narrative: 34-year-old otherwise healthy female presenting with right flank pain radiating towards the right lower quadrant and groin area. Intermittent pain for the past few days but today she had sharp pain in her right flank that started 1:00 p.m. as been progressively worsening. Intermittent throbbing sensations and she felt nauseous and vomited 1 time. No fever chills. Senses a feeling of urgency but no foul odor or concentrated urine. No history of urinary tract infections or kidney stones. No history of trauma. Denies any chance of . Has tried some Tylenol without any relief. No vaginal discharge or vaginal bleeding, no shortness of breath, present nausea vomiting, chest pain, or shortness of breath Related Data Allergies Allergy/AdvReac Type Severity Reaction Status Date / Time No Known Allergies Allergy Verified 12/14/24 18:23 Review of Systems 2 Review of Systems: As [facility] Past Medical History Medical History Post-operative pain Gestational hypertension Encounter for sterilization Supervision of high risk , unspecified, unspecified trimester History of gestational hypertension Suppression of menstruation Surgical History Surgical History History of section complicating Delivery by section (01/07/19) Family History Family History Grandparent CHF (congestive heart failure) paternal grandfather Hypertension paternal grandparents Other Breast cancer paternal aunt Carcinoma of colon paternal Aunt Different sisiter Father Hypertension Social History Social History Social History: Smoking status: Never smoker Second hand tobacco smoke exposure: No Alcohol intake: current Alcohol use details: Socially Substance use: never Substance use type: does not use Do You Feel Safe in your Home?: Yes Lack of Transportation: No Lack of Food: Never True Current Housing: I Have Housing Concerned About Future Housing: No Difficulty Paying Gas/Electric Bills: No Difficulty Paying for Meds: No Currently Unemployed: No Education: Master's Degree or Higher Difficulty w/ Childcare or Family Care: No Living arrangements: with family Additional living arrangements comments: Occupation/Education: 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 Mucous membranes moist. NECK: Supple. CHEST: [Clear to auscultation. No respiratory distress.] HEART: [Regular rate and rhythm]. No murmur heard. [Normal peripheral pulses.] ABDOMEN: Soft and nondistended, nontender to palpation. No reproducible CVA tenderness. No peritonitis. EXTREMITIES: Normal range of motion. [No edema.] SKIN: Warm, dry, no rash. NEURO: [No focal deficits]. Alert and oriented [x3.] PSYCH: [Normal mood and affect.] Course Vital Signs Vital signs: Vital Signs Temperature 36.6 C 12/14/24 18:19 Pulse Rate 90 12/14/24 18:19 Respiratory Rate 16 12/14/24 18:19 Blood Pressure 146/101 H 12/14/24 18:19 Pulse Oximetry 100 12/14/24 18:19 Oxygen Delivery Room Air 12/14/24 18:19 Temperature 36.8 C 12/14/24 19:34 Pulse Rate 84 12/14/24 21:19 Respiratory Rate 16 12/14/24 21:19 Blood Pressure 132/92 H 12/14/24 21:19 Pulse Oximetry 100 12/14/24 21:19 Oxygen Delivery Room Air 12/14/24 19:34 MDM - Abdominal Pain MDM Narrative Medical decision making narrative: 34-year-old otherwise healthy female presenting with right flank pain radiating towards the right lower quadrant and groin area. Intermittent pain for the past few days but today she had sharp pain in her right flank that started 1:00 p.m. as been progressively worsening. Intermittent throbbing sensations and she felt nauseous and vomited 1 time. No fever chills. Senses a feeling of urgency but no foul odor or concentrated urine. No history of urinary tract infections or kidney stones. No history of trauma. Denies any chance of . Has tried some Tylenol without any relief. No vaginal discharge or vaginal bleeding, no shortness of breath, present nausea vomiting, chest pain, or shortness of breath. Patient is hemodynamically stable without any tachycardia, fever, hypoxemia. She has a soft nontender nondistended abdomen with no CVA tenderness. No vaginal discharge or purulent drainage. Suspect kidney stone, renal colic, urinary tract infection. Laboratory studies obtained as well as urinalysis. CT scan without contrast obtained. She was given fluids and morphine for pain control. Urinalysis has 100+ red blood cells, no nitrates or leukocyte esterase. Contaminated sample but no signs of infection. Likely kidney stone and awaiting CT results. CT scan shows distal 4 mm stone with mild right hydro. Consistent patient's exam and history findings. No significant leukocytosis. No urinary tract infection. Normal renal function. Patient was given Toradol and Flomax and discharged home with regimen and Urology follow-up and return precautions. Medical Records Attestation: I reviewed the patient's medical records. Lab Data Attestation: I reviewed the patient's lab results. 12/14/24 18:29 12/14/24 20:32 Labs: Lab Results 12/14/24 12/14/24 12/14/24 Range/Units 18:29 18:41 18:49 WBC 10.9 H (4.5-10.0) K/mm3 RBC 4.34 (4.2-5.4) M/mm3 Hgb 12.3 (12.0-15.0) g/dL Hct 38.3 (37.0-47.0) % MCV 88.2 (80-100) fl MCH 28.3 (26-34) pg MCHC 32.1 (32-36) g/dl RDW 12.8 (11.5-14.5) % Plt Count 298 D (150-375) k/mm3 MPV 11.1 H (7.4-10.4) fl Immature Gran % (Auto) 0.4 (0-0.5) % Neut % (Auto) 75.0 H (45.5-73.1) % Lymph % (Auto) 17.1 L (18.3-44.2) % Buchanan % (Auto) 6.3 (2.6-8.5) % Eos % (Auto) 0.7 (0-4.4) % Baso % (Auto) 0.5 (0.2-1.2) % Lymph # (Auto) 1.87 (0.9-3.2) K/mm3 Buchanan # (Auto) 0.7 H (0.1-0.6) K/mm3 Eos # (Auto) 0.1 (0-0.3) K/mm3 Baso # (Auto) 0.1 (0.0-0.1) K/mm3 Abs Immat Gran (auto) 0.04 H (0.00-0.031) K/mm3 Absolute Neuts (auto) 8.2 H (1.3-6.7) K/mm3 Absolute Nucleated RBC 0.000 (0.0-0.012) K/mm3 Nucleated RBC % 0.0 (0.0-0.2) % Sodium (137-145) mmol/L Potassium (3.4-5.0) mmol/L Chloride (98-107) mmol/L Carbon Dioxide (22-30) mmol/L Anion Gap (4-12) mmol/L BUN (7-17) mg/dL Creatinine (0.7-1.0) mg/dL Estim Creat Clear Calc ml/min Estimated GFR (59 - ) Glucose (65-110) mg/dL Calcium (8.4-10.2) mg/dL Total Bilirubin (0.2-1.3) mg/dL AST (14-36) U/L ALT (6-35) U/L Alkaline Phosphatase (38-126) U/L Total Protein (6.3-8.2) g/dL Albumin (3.5-5.1) g/dL Lipase (23-300) U/L Urine Color Yellow (Yellow) Urine Appearance Cloudy H (Clear) Urine pH 5.0 (5.0-9.0) Ur Specific Davenport 1.034 (1.001-1.035) Urine Protein 1+ H (Negative) mg/dL Urine Glucose (UA) Negative (Negative) mg/dL Urine Ketones Trace H (Negative) mg/dL Ur Blood (Man) 3+ H (Negative) Urine Nitrate Negative (Negative) Urine Bilirubin Negative (Negative) Urine Urobilinogen 1.0 (<2.0) mg/dL Leukocyte Esterase Rfl Negative (Negative) TOD/UL Urine RBC >100 H (0-2) /hpf Urine WBC 0-5 (0-3) /hpf Ur Squamous Epith Cells Many H (Few) /hpf Urine Bacteria 1+ H /hpf Urine Casts 0-2 POC Urine HCG, Qual Negative (Negative) 12/14/24 Range/Units 20:32 WBC (4.5-10.0) K/mm3 RBC (4.2-5.4) M/mm3 Hgb (12.0-15.0) g/dL Hct (37.0-47.0) % MCV (80-100) fl MCH (26-34) pg MCHC (32-36) g/dl RDW (11.5-14.5) % Plt Count (150-375) k/mm3 MPV (7.4-10.4) fl Immature Gran % (Auto) (0-0.5) % Neut % (Auto) (45.5-73.1) % Lymph % (Auto) (18.3-44.2) % Buchanan % (Auto) (2.6-8.5) % Eos % (Auto) (0-4.4) % Baso % (Auto) (0.2-1.2) % Lymph # (Auto) (0.9-3.2) K/mm3 Buchanan # (Auto) (0.1-0.6) K/mm3 Eos # (Auto) (0-0.3) K/mm3 Baso # (Auto) (0.0-0.1) K/mm3 Abs Immat Gran (auto) (0.00-0.031) K/mm3 Absolute Neuts (auto) (1.3-6.7) K/mm3 Absolute Nucleated RBC (0.0-0.012) K/mm3 Nucleated RBC % (0.0-0.2) % Sodium 138 (137-145) mmol/L Potassium 4.1 (3.4-5.0) mmol/L Chloride 103 (98-107) mmol/L Carbon Dioxide 25 (22-30) mmol/L Anion Gap 10 (4-12) mmol/L BUN 18 H (7-17) mg/dL Creatinine 0.86 (0.7-1.0) mg/dL Estim Creat Clear Calc 86 ml/min Estimated GFR > 60 (59 - ) Glucose 109 (65-110) mg/dL Calcium 9.6 (8.4-10.2) mg/dL Total Bilirubin 0.7 (0.2-1.3) mg/dL AST 26 (14-36) U/L ALT 21 (6-35) U/L Alkaline Phosphatase 84 (38-126) U/L Total Protein 8.2 (6.3-8.2) g/dL Albumin 4.8 (3.5-5.1) g/dL Lipase 58 (23-300) U/L Urine Color (Yellow) Urine Appearance (Clear) Urine pH (5.0-9.0) Ur Specific Davenport (1.001-1.035) Urine Protein (Negative) mg/dL Urine Glucose (UA) (Negative) mg/dL Urine Ketones (Negative) mg/dL Ur Blood (Man) (Negative) Urine Nitrate (Negative) Urine Bilirubin (Negative) Urine Urobilinogen (<2.0) mg/dL Leukocyte Esterase Rfl (Negative) TOD/UL Urine RBC (0-2) /hpf Urine WBC (0-3) /hpf Ur Squamous Epith Cells (Few) /hpf Urine Bacteria /hpf Urine Casts POC Urine HCG, Qual (Negative) Imaging Data Attestation: I personally reviewed and interpreted this imaging study as follows: My impression: Impressions Abdomen/Pelvis CT 12/14/24 19:54 IMPRESSION: Mild right hydronephrosis secondary to a 4 mm stone in the distal right ureter just proximal to the ureterovesicular junction. All CT scans at this facility are performed using low dose modulation techniques as appropriate to perform exam including the following: automated exposure control; use of iterative reconstruction technique; adjustment of the mA and/or kV according to patient size (this includes techniques or standardized protocols for targeted exams where dose is matched to indication/reason for exam). Radiologist's impression: ITS Impressions Abdomen/Pelvis CT 12/14/24 19:54 IMPRESSION: Mild right hydronephrosis secondary to a 4 mm stone in the distal right ureter just proximal to the ureterovesicular junction. All CT scans at this facility are performed using low dose modulation techniques as appropriate to perform exam including the following: automated exposure control; use of iterative reconstruction technique; adjustment of the mA and/or kV according to patient size (this includes techniques or standardized protocols for targeted exams where dose is matched to indication/reason for exam). Discharge Plan Discharge Clinical Impression: Right ureteral stone Patient Disposition: Home Condition: Stable Instructions: Antibiotic Form, Kidney Stones (ED), How to Strain Your Urine (ED), Ureteral Stones (ED) Additional Instructions: CT scan shows a distal 4 mm stone near the ureter connection into the bladder. We will send you home with medications for pain control and dilation of the urinary system to help the stone pass more easily. We also sent you some breakthrough pain medications for severe pain. If you have intractable pain, inability to tolerate oral intake, intractable nausea vomiting, intractable fevers or any other emergent concerns return to the ER otherwise follow-up with your primary care provider and provided urologist if this is recurrent or persistent issue. Patient Language: Singaporean Prescriptions: New ketorolac 10 mg tablet 10 mg PO Q8H PRN (Reason: pain) 5 Days Qty: 20 0RF Rx Instructions: maximum total duration of 5 days from all oral, intranasal, or parenteral formulations tamsulosin [Flomax] 0.4 mg capsule 0.4 mg PO DAILY Qty: 20 0RF ondansetron 4 mg tablet,disintegrating 4 mg PO Q8H PRN (Reason: nausea and vomiting) Qty: 10 0RF oxycodone 5 mg tablet 5 mg PO Q8H PRN (Reason: pain) Qty: 10 0RF Follow-up/Referrals: Jim,Farida Alfaro MD [Primary Care Provider, Unknown] Pritesh Garcia MD [Physician, Urology] - 1 Week Referral Note: 4mm UVJ stone Time of Disposition: 20:54
--- NOTE | 2024-12-14 19:48 | PC.NURSE ---
Pt taken to CT
[2024-12-14] MEDS: MORPHINE SULFATE (*CRX) 4 MG/ML INJ IV PUSH (19:52)
[2024-12-14] MEDS: LACTATED RINGERS 1,000 ML 999 ML IV CONT (19:53)
[2024-12-14] MEDS: TAMSULOSIN HCL 0.4 MG CAPSULE PO (20:19)
[2024-12-14] MEDS: ONDANSETRON INJ 4 MG/2 ML VIAL IV PUSH (20:20)
[2024-12-14] MEDS: KETOROLAC 15 MG/ML VIAL (*BKC) IV PUSH (20:20)
[2024-12-14 20:52] LABS: Alanine Aminotransferase 21 U/L (6-35); Albumin Level 4.8 g/dL (3.5-5.1); Alkaline Phosphatase 84 U/L (38-126); Anion Gap 10 mmol/L (4-12); Aspartate Amino Transferase 26 U/L (14-36); Bilirubin,Total 0.7 mg/dL (0.2-1.3); Blood Urea Nitrogen 18 mg/dL (7-17); Calcium 9.6 mg/dL (8.4-10.2); Carbon Dioxide 25 mmol/L (22-30); Chloride 103 mmol/L (98-107); Estimated CRCL calculation 86 ml/min; Estimated Glomerular Filt Rate > 60; Glucose 109 mg/dL (65-110); Lipase 58 U/L (23-300); Potassium 4.1 mmol/L (3.4-5.0); Sodium 138 mmol/L (137-145); Total Protein 8.2 g/dL (6.3-8.2)
[2024-12-14 21:19] VITALS: BP 132/92; PULSE 84; RESP 16; O2SAT 100
== END 2024-12-14 21:19 | disposition home or self-care (01) ==
PROVIDERS: Emergency Medicine; Emergency Provider Student in an Organized Health Care Education/Training Program; PCP Student in an Organized Health Care Education/Training Program
DX: N13.2 Hydronephrosis with renal and ureteral calculous obstruction (principal)
CPT/HCPCS: 36415; 74176; 80053; 81001; 81025; 83690; 85025; 96361; 96374; 96375; 99284; A9270; J1885; J2270; J2405; J7120

== ENCOUNTER 2025-01-04 07:49 | Outpatient (CLI) | payer OTHER, SELFPAY ==
--- NOTE | ~2025-01-04 | XR_ITS ---
Examination: XR abdomen/kub 1V Clinical History: RIGHT URETERAL STONE, FOLLOW-UP Comparison: CT abdomen pelvis 12/14/2024 Technique: 2 views AP abdomen Findings: No nephroureteral calculi identified. Scattered colonic gas and stool. No other acute abnormality. IMPRESSION: 1. No nephroureteral calculi identified. Reviewed, dictated and finalized at location R. ER PRINTED CIRCUIT BOARDS
--- OUTSIDE RECORDS SUMMARY | 2025-01-04 07:54 | XMS_ITS | Clinical Summary ---
Author Organization [facility] Address [address] [place] [address] Phone Care Team Providers Care Equity Analyst Name Role Phone Rosa Redding MD Primary Care Provider [phone] Allergies No known active allergies Medications No [...] Comments Blood Pressure 120/82 03/19/2019 9:03 AM FIRST AID TRAINER Pulse 61 03/19/2019 9:03 AM FIRST AID TRAINER Temperature 36.7 C (98 F) 03/19/2019 9:03 AM FIRST AID TRAINER Respiratory Rate 16 03/19/2019 9:03 AM FIRST AID TRAINER Oxygen Saturation 97% 03/19/2019 9:03 AM FIRST AID TRAINER Inhaled Oxygen Concentration - - Weight 97.1 kg (214 lb) 03/19/2019 9:03 AM FIRST AID TRAINER Height 154.9 cm (5' 1) 03/19/2019 9:03 AM FIRST AID TRAINER Body Mass Index 40.43 03/19/2019 9:03 AM FIRST AID TRAINER Plan of Treatment Health Maintenance Due Date Last Done Comments DTAP/TDAP/TD VACCINES (1 - Tdap) 2009 HEPATITIS B VACCINES (1 of 3 - 19+ 3-dose series) 02/14 HPV/Cotest (21-29) 2011 HPV VACCINES (1 - 3-dose SCDM series) 2017 CERVICAL CANCER SCREENING 2020 HPV/Cotest (30-65) 2020 PAP SMEAR 2020 INFLUENZA VACCINE (#1) 2024 11/12/2019 Insurance [employer] PPO [id number] [place] [address] OPTIONS PPO [id number] Care Teams Equity Analyst Relationship Specialty Start Date End Date Rosa Redding MD [address] [place] [phone] PCP - General Obstetrics and Gynecology 09/25/18
--- OUTSIDE RECORDS SUMMARY | 2025-01-04 07:54 | XMS_ITS | Clinical Summary ---
Author Organization [facility] [employer] Address [address] [facility] [place] [address] Care Team Providers Care Novelty Balloon Assembler And Packer Name Role Phone Unavailable Primary Care Provider Unavailabl e Source Comments [facility] [employer]non-owned Affiliates and Associated Physician Practices is amultiple site organization consisting of ambulatory clinics and hospital sitesin [place], [place], [place] and [place]. This disclosure is being madepursuant to the Care Everywhere program and may not contain all information available regarding this patient. Last updated 17.[facility] [employer] Allergies No known active allergies Medications * [...] on file Legal Sex Female 9:01 AM CANCER PROGRAM COORDINATOR Gender Identity Not on file Sexual Orientation Not on file Last Filed Vital Signs Vital Sign Reading Time Taken Comments Blood Pressure 120/78 02/10/2017 6:27 PM CANCER PROGRAM COORDINATOR Pulse 69 02/10/2017 6:27 PM CANCER PROGRAM COORDINATOR Temperature 37 C (98.6 F) 02/10/2017 6:27 PM CANCER PROGRAM COORDINATOR Respiratory Rate 18 02/10/2017 6:27 PM CANCER PROGRAM COORDINATOR Oxygen Saturation 97% 02/10/2017 6:27 PM CANCER PROGRAM COORDINATOR Inhaled Oxygen Concentration - - Weight 86.2 kg (190 lb) 02/10/2017 6:27 PM CANCER PROGRAM COORDINATOR Height - - Body Mass Index - - Plan of Treatment Health Maintenance Due Date Last Done Comments HIV SCREENING 2005 HEPATITIS C SCREENING 02/25/2008 DTAP/TDAP/TD VACCINES (1 - Tdap) 2009 HEPATITIS B VACCINE (1 of 3 - 19+ 3-dose series) 2009 Cervical Cancer Screening 2011 PAP SMEAR 2011 HPV VACCINE (1 - 3-dose SCDM series) 2017 PAP with HPV 2020 DEPRESSION SCREENING 02/15/2024 COVID-19 VACCINE (1 - 2024-2 6 season) 2024 INFLUENZA VACCINE (#1) 2024 ZOSTER [...] patient's age to complete this topic [place] [address] [place] [address] [facility]
--- OUTSIDE RECORDS SUMMARY | 2025-01-04 07:54 | XMS_ITS | Clinical Summary ---
Author Organization [facility] Address [address] [place] [address] Care Team Providers Care Lining Marker Name Role Phone Farida Fernandez MD Primary Care Provider + Allergies No known active allergies Medications tirzepatide (ZEPBOUND) 2.5 MG/0.5ML injectionIndicati ons:Weight Loss Inject 2.5 mg into the skin once a week. Indications: Weight Loss 4 mL 5 Active lisinopril (PRINIVIL) 10 MG tabletIndications :Essential hypertension Take 1 tablet (10 mg total) by mouth daily. Do not fill until patient requests 90 tablet 3 5 11/16/19 26 Active Active Problems Problem Noted Date Diagnosed Date Primary hypertension 08/16/2024 Overview (11/15/2024): Had gestation hypertension. Took labetalol at the time. Does not check blood pressures at home but does have a cuff. Now is status post tubal ligation. Was switched to lisinopril last visit and is now at 20 mg daily. Home readings are running 120s/80s. She has not been monitoring her blood pressure at home. Assessment & Plan (11/15/2024 8:22 AM CDT): Lower than usual today likely due to weight loss. - Monitor blood pressure daily. - If systolic blood pressure consistently <110 for several days, reduce lisinopril to 10 mg. Lower dose sent as anticipate she will need to do this in the next month. - Consider discontinuation if blood pressure remains <110 despite reduced dosage. Assessment & Plan (09/13/2024 9:06 AM CDT): Chronic and now controlled with lisinopril 20 mg daily. Updated prescription to reflect new dosing. Assessment & Plan (08/16/2024 10:52 AM CDT): New diagnosis. Not controlled. Start lisinopril 10 mg daily. Ordered CMP. Request she update me with [facility] blood pressure flowsheet to see if she needs adjustment and we will do a 1 month follow-up. Morbid obesity 08/16/2024 Overview (11/15/2024): - She has been on tirzepatide for 2 months, with consistent weight loss of 1-2 pounds per week. - Wt started at 227 lb now down to 218 lb - Dietary changes include oatmeal for breakfast, salads for lunch - She is enrolled in a weight loss program and working with a dietitian. - She is pleased with her progress, noting improved clothing fit, but is concerned about weight gain after discontinuing medication and identifies as a stress eater. - Reports increased heartburn, attributed to tirzepatide. Assessment & Plan (11/15/2024 8:23 AM CDT): Improving. - Continue tirzepatide 2.5 mg for 2 more months. - Increase fiber intake and reduce high-saturated fat foods - Gradually incorporate new high fiber foods. - Use a food diary to track intake and identify low-fiber foods. Assessment & Plan (09/13/2024 9:07 AM CDT): Chronic. Will be starting Zepbound this week. Requested she update me in 1 month to determine if we should adjust the dose to 5 mg or continue at 2.5 for a second month. Assessment & Plan (08/16/2024 10:53 AM CDT): Discussed dietary and lifestyle changes. Encouraged high-fiber diet low in saturated fats and simple sugars. She will check into whether Zepbound is covered and return if they indicate that they will cover it. Encounters Date Type Department Care Team Description 12/17/2024 IQ Log[facility] Message Enc [address] [address] Farida Fernandez MD Kidney Stone 12/14/2024 Scan HEALTH INFO SRVCS Scanned, Doc [facility] CT (SCAN) 12/11/2024 Reacción Message Enc [address] [place] [address] Farida Fernandez MD Possible UTI 11/15/2024 7:30 AM CDT Office Visit [address] [place] [address] Farida Fernandez MD Medication Check (Here for Zepbound ck ) 11/15/2024 Travel from Last 3 Months Immunizations Immunization Administration Dates Next Due Influenza Adult (Generic) 11/12/2019 Tdap (Generic) 07/21/2022 Family History Medical History Relation Comments No Known Problems Brother Asthma Daughter Hypertension Father Cancer Maternal Aunt Lung cancer No Known Problems Mother Cancer Paternal Aunt 1 Colon cancer Cancer Paternal Aunt 2 Breast cancer Hypertension Paternal Grandmother No Known Problems Son Relation Status Comments Brother Alive Daughter Alive Father Alive Maternal Aunt Mother Alive Paternal Aunt 1 Paternal Aunt 2 Alive Paternal Grandmother Son Alive Social History Tobacco Use Types Packs/Day Years Used Date Smoking Tobacco: Never Passive Smoke Exposure: Never Smokeless Tobacco: Never Tobacco Cessation:Counseling Given: No Alcohol Use Standard Drinks/Week Comments Yes 0 (1 standard drink = 0.6 oz pur e alcohol) Social drinker PHQ-2 Answer Date Recorded Patient Health Questionnaire-2 Score 0 11/15/2024 Comments No Sex and Gender Information Value Date Recorded Sex Assigned at Not on file Legal Sex Female 11:27 AM CDT Gender Identity Not on file Sexual Orientation Not on file 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 file Not on file Not on file Last Filed Vital Signs Vital Sign Reading Time Taken Comments Blood Pressure 119/73 11/15/2024 7:33 AM CDT Pulse 69 11/15/2024 7:33 AM CDT Temperature 36.1 C (96.9 F) 11/15/2024 7:33 AM CDT Respiratory Rate 16 09/13/2024 8:10 AM CDT Oxygen Saturation 98% 11/15/2024 7:33 AM CDT Inhaled Oxygen Concentration - - Weight 99 kg (218 lb 3.2 oz) 11/15/2024 7:33 AM CDT Height 154.9 cm (5' 1) 11/15/2024 7:33 AM CDT Body Mass Index 41.23 11/15/2024 7:33 AM CDT Plan of Treatment Upcoming Encounters Date Type Department Care Team (Late st Contact Info) Description 01/15/2025 7:30 AM RIPSHEAR OPERATOR Office Visit [facility] [address] [place] [address] Farida Fernandez MD [address] [facility] [address] [place] [phone] 08/22/2025 7:30 AM CDT Office Visit [facility] [address] [place] [address] [address] [place], [place] [address] Farida Fernandez MD [address] [facility] [address] [place] [phone] Health Maintenance Due Date Last Done Comments Cervical Cancer Screening Pa p Smear (Age 30 to 64) Every 3 Years 1990 Hepatitis C 2008 Hepatitis B Vaccines (1 of 3 - 19+ 3-dose series) 2009 HPV Vaccines (1 - 3-dose SCD M series) 2017 COVID-19 Vaccine (2024-2 6 season) 2024 Influenza Adult (#1) 2024 11/12/2019 Annual Physical 08/16/2025 08/16/2024 Cervical Cancer Screening Pa p with HPV Testing (Age 30 to 64) Every 5 Years 11/30/2026 11/30/2021 Cervical Cancer Screening with HPV 11/30/2026 DTaP, Tdap and Td Vaccines ( 2 - Td or Tdap) 07/21/2032 07/21/2022 PHQ-2 (Physician [place]) Completed 11/15/2024 Hepatitis A Vaccines Aged Out No long er eligible based on patient's age to complete this topic Meningococcal B Vaccine Aged Out No l onger eligible based on patient's age to complete this topic Meningococcal Vaccine Aged Out No emhran gama eligible based on patient's age to complete this topic Pneumococcal Vaccine: Pediat rics (0 to 5 Years) and At-Risk Patients (6 to 49 Years) Aged Out No longer eligi ble based on patient's age to complete this topic RSV Immunizations Under 20 Months Aged Out No longer eligible based on patient's age to complete this topic Procedures Procedure Name Priority Date/Time Associated Diagnosis Comments CT GENERIC 12/14/2024 OUTSIDE CYTOPATH CERV/VAG IN TERPRET (PAP) 11/30/2021 from Last 3 Months or Most Recently Relevant to Health Maintenance Results * CT GENERIC (12/14/2024) Anatomical Region Laterality Modality Other 12/14/2024 [facility] Scanned SCANNING Final Resu lt * PAP SMEAR WITH HPV (11/30/2021) 11/30/2021 [facility] Scanned SCANNING Final Resu lt from Last 3 Months or Most Recently Relevant to Health Maintenance Insurance [employer] Care Teams Lining Marker Relationship Specialty Start Date End Date Krystowiak, Farida A, MD [address] [phone] PCP - General FAMILY PRACTICE 08/16/24
--- OUTSIDE RECORDS SUMMARY | 2025-01-04 07:54 | XMS_ITS | Encounter Summary ---
Author Organization [facility] Address [address] [place] [address] Care Team Providers Care Comic Book Designer Name Role Phone Farida Fernandez MD Primary Care Provider + Encounter Details Date Type Department Care Team (Late st Contact Info) Description 08/16/2024 SegundoHogar Message Enc [facility] Medical Group [facility] Medicine [address] [address] Eric, [facility] Provider pap Social History Tobacco Use Types [...] st Contact Info) Description 01/15/2025 7:30 AM NURSING AGENCY MANAGER Office Visit [address] [place], [place] [phone] Farida Fernandez MD [address] [place], [place] [phone] 08/22/2025 7:30 AM CDT Office Visit [address] [place], [place] [phone] Farida Fernandez MD [address] [place], [place] [phone] documented as of this encounter Visit Diagnoses Not on filedocumented in this encounter Care Teams Comic Book Designer Relationship Specialty Start Date End Date Farida Fernandez MD [address] [place] [address] PCP - General FAMILY PRACTICE 08/16/24 documented as of this encounter
== END 2025-01-04 07:50 | disposition home or self-care (01) ==
PROVIDERS: PCP Student in an Organized Health Care Education/Training Program
DX: N20.1 Calculus of ureter (principal)
CPT/HCPCS: 74018

== ENCOUNTER 2025-01-17 09:15 | Outpatient (CLI) | payer OTHER, SELFPAY ==
--- NOTE | ~2025-01-17 | CT_ITS ---
EXAMINATION: CT abdomen pelvis wo con DATE: 01/17/2025 09:30 INDICATION: Right ureteral stone TECHNIQUE: Computed tomography (CT) of the abdomen and pelvis was performed without intravenous contrast. The dose-length product was 787.17 mGy-cm. Automated exposure control and iterative reconstruction technique were employed. COMPARISON: CT dated 12/14/2024. FINDINGS: Lung bases unremarkable. Heart size normal. No significant pleural or pericardial effusion. Normal appendix. The liver, spleen, pancreas, adrenal glands and kidneys are unremarkable. Interval passage of distal right ureteral stone seen on prior study. No abnormal pelvic masses or fluid collections. No significant vascular abnormality. No lymphadenopathy. Gallbladder is present. No free air or free fluid. Small sclerotic lesions of the pelvis, likely benign bone islands. No acute osseous abnormality. No significant vascular abnormality. No lymphadenopathy. IMPRESSION: 1. No acute abdominal abnormality. Reviewed, dictated and finalized at location I. OWS APPLICATION ADMINISTRATOR
== END 2025-01-17 09:16 | disposition home or self-care (01) ==
LOC: MICIMG 09:16
PROVIDERS: PCP Student in an Organized Health Care Education/Training Program
DX: N20.1 Calculus of ureter (principal)
CPT/HCPCS: 74176